=== PATIENT | female | born 1960 | race Caucasian/White ===

== ENCOUNTER 2019-10-20 10:39 | Emergency (ER) | payer OTHER, MEDICAID ==
[~2019-10-20] VITALS: Ht 157.5 cm; Wt 52.0 kg
[~2019-10-20 10:39] MED LIST: ACET1TAB12 PO; ADV50100 INH; ALB0.5UD IH; CLIN-97 PO; IBUP-1984 PO; LEVA15HF4 IH; PRED20TA PO; TIOT18CA7 IH; TRAM50TA2 PO
[2019-10-20] MEDS ORDERED: LIDOcaine 5% patch TP STA (11:36)
[2019-10-20] MEDS ORDERED: ketorolac tromethamine 15mg/ml inj. IM ONE (11:40)
[2019-10-20] MEDS ORDERED: IBUP-1985 PO (12:27)
[2019-10-20] MEDS ORDERED: LIDO700A32 TOP (12:27)
[2019-10-20 12:43] VITALS: BP 134/69
== END 2019-10-20 12:39 | disposition home or self-care (01) ==
LOC: ER 10:40
DX: M25.511 Pain in right shoulder (principal); M54.2 Cervicalgia; R53.1 Weakness; J45.909 Unspecified asthma, uncomplicated; G89.29 Other chronic pain; F17.200 Nicotine dependence, unspecified, uncomplicated; Z98.890 Other specified postprocedural states; Z79.899 Other long term (current) drug therapy; V89.2XXA Person injured in unspecified motor-vehicle accident, traffic, initial encounter; Y93.89 Activity, other specified; Y92.488 Other paved roadways as the place of occurrence of the external cause; Y99.8 Other external cause status
CPT/HCPCS: 73030; 96372; 99283; J1885

== ENCOUNTER 2020-01-21 11:04 | Emergency (ER) | payer MEDICAID ==
[~2020-01-21] VITALS: Ht 157.5 cm; Wt 50.0 kg
[~2020-01-21 11:04] MED LIST changes: +IBUP-1985 PO; +LIDO700A32 TOP
[2020-01-21 11:09] VITALS: BP 98/62
[2020-01-21] MEDS ORDERED: ALBU8HFA PO (11:23)
[2020-01-21] MEDS ORDERED: PENI500T2 PO (11:23)
== END 2020-01-21 11:29 | disposition home or self-care (01) ==
LOC: ER 11:04
DX: K08.89 Other specified disorders of teeth and supporting structures (principal); J45.909 Unspecified asthma, uncomplicated; G89.29 Other chronic pain; M54.9 Dorsalgia, unspecified; Z98.890 Other specified postprocedural states; Z79.899 Other long term (current) drug therapy
CPT/HCPCS: 99283

== ENCOUNTER 2021-10-14 11:43 | Emergency (ER) | payer MEDICAID ==
[~2021-10-14] VITALS: Ht 157.5 cm; Wt 54.5 kg
[2021-10-14] MEDS ORDERED: CefTRIAXone 2gm/D5W 50ml BAG 50 ML IV ONE (11:55)
[2021-10-14] MEDS ORDERED: ipratropium/albuterol 3ml nebule NEB ONE ×2 (11:55→15:00)
[2021-10-14] MEDS ORDERED: normal saline 1000ML IV soln IV ONE (11:55)
[2021-10-14] MEDS ORDERED: azithromycin/NS 500mg/250ml 250 ML IV ONE (11:55)
--- NOTE | 2021-10-14 12:34 | NUR ---
RT IN TO GIVE PT ORDERED SVN NEB. PER RN OTTO, PT IS UNDER SUSPICION FOR COVID D/T UNVACCINATED STATUS AND PT LIVING NEAR COVID POSITIVE PEOPLE. AGREEMENT TO WAIT ON SVN AT THE MOMENT UNTIL TEST COMES BACK NEGATIVE. PT IS NOT SOB. SPO2 96% ON RA. PT HAS MOIST PRODUCTIVE COUGH WITH MINIMAL SECRETIONS. ASKED NGA RODRIGUEZ ABOUT HOLDING THE SVN AND HE STATED THAT IS FINE. RT WILL COME BACK WHEN PTS TEST COMES BACK NEGATIVE
[2021-10-14 12:43] LABS: BASOPHILS % (AUTO) 0.3 % (0-1); EOSINOPHILS # (AUTO) 0.1 X10'3 (0-0.9); EOSINOPHILS % (AUTO) 0.8 % (0-6); HEMATOCRIT 45.4 % (35.0-45.0); HEMOGLOBIN 15.6 g/dl (12.0-16.0); LYMPHOCYTES # (AUTO) 1.9 X10'3 (1.1-4.8); LYMPHOCYTES % (AUTO) 27.4 % (21-51); MEAN CORPUSCULAR HEMOGLOBIN 32.2 PG (27.0-31.0); MEAN CORPUSCULAR HGB CONC 34.3 g/dL (33.0-36.5); MEAN PLATELET VOLUME 6.9 FL (7.4-10.4); MONOCYTES # (AUTO) 0.6 X10'3 (0-0.9); MONOCYTES % (AUTO) 9.1 % (2-12); NEUTROPHILS # (AUTO) 4.2 X10'3 (1.8-7.7); NEUTROPHILS % (AUTO) 62.4 % (42-75); PLATELET COUNT 234 X10'3 (140-440); RED BLOOD COUNT 4.83 X10'6 (4.20-5.60); RED CELL DISTRIBUTION WIDTH 12.4 % (11.5-14.5); WHITE BLOOD COUNT 6.8 X10'3 (4.5-11.0)
[2021-10-14 12:55] LABS: ALANINE AMINOTRANSFERASE 21 U/L (12-78); ALBUMIN 3.3 G/DL (3.4-5.0); ALBUMIN/GLOBULIN RATIO 0.8 (1.1-1.5); ALKALINE PHOSPHATASE 82 IU/L (46-116); ANION GAP 13 (8-16); ASPARTATE AMINO TRANSFERASE 34 U/L (10-37); BLOOD UREA NITROGEN 10 MG/DL (7-18); CALCIUM 8.8 MG/DL (8.5-10.1); CHLORIDE 103 MMOL/L (99-107); CREATININE 0.91 MG/DL (0.40-0.90); GLUCOSE 166 MG/DL (70-104); POTASSIUM 3.4 MMOL/L (3.5-5.1); SODIUM 139 MMOL/L (135-145); TOTAL CARBON DIOXIDE 22.7 MMOL/L (24-32); TOTAL PROTEIN 7.5 G/DL (6.4-8.2); eGFR 63 ML/MIN
[2021-10-14 12:59] LABS: MAGNESIUM 1.8 MG/DL (1.5-2.4)
[2021-10-14 13:00] LABS: BILIRUBIN,TOTAL 0.5 MG/DL (0.1-1.0)
--- NOTE | 2021-10-14 14:59 | NUR ---
Patient refuses straight cath for urine.
[2021-10-14] MEDS ORDERED: LEVA15HF4 INH (15:08)
[2021-10-14] MEDS ORDERED: FLUT1BLS4 PO (15:08)
[2021-10-14] MEDS ORDERED: AMOX-117 PO (15:08)
[2021-10-14] MEDS ORDERED: PRED10TA23 PO (15:08)
--- NOTE | 2021-10-14 16:35 | NUR ---
CALLED [facility] FOR PT TO BE TAKEN BACK HOME, ETA 20MIN
[2021-10-14 16:40] VITALS: BP 112/69
== END 2021-10-14 16:48 | disposition home or self-care (01) ==
LOC: ER 11:43
DX: J44.1 Chronic obstructive pulmonary disease with (acute) exacerbation (principal); Z20.822 Contact with and (suspected) exposure to COVID-19; J45.909 Unspecified asthma, uncomplicated; G89.29 Other chronic pain; M54.50 Low back pain, unspecified
CPT/HCPCS: 36415; 70450; 71045; 80053; 83605; 83735; 84145; 84484; 85025; 87040; 87635; 93005; 94640; 96365; 96367; 99285; C9803; J0456; J0696; J3490; J7030; 94760

== ENCOUNTER 2022-11-13 22:36 | Emergency (ER) | payer MEDICAID ==
[~2022-11-13] VITALS: Ht 157.5 cm; Wt 49.6 kg
[~2022-11-13 22:36] MED LIST changes: +FLUT1BLS4 PO; +LEVA15HF4 INH
[2022-11-13 22:49] VITALS: TEMP 99.2
[2022-11-14] MEDS ORDERED: SULF1TAB49 PO (01:43)
[2022-11-14] MEDS ORDERED: PRED20TA PO (01:43)
[2022-11-14 02:00] VITALS: BP 136/88; PULSE 96; RESP 16; O2SAT 97
== END 2022-11-14 02:04 | disposition home or self-care (01) ==
LOC: ER 22:37
DX: L23.7 Allergic contact dermatitis due to plants, except food (principal); G89.29 Other chronic pain; M54.9 Dorsalgia, unspecified; J45.909 Unspecified asthma, uncomplicated; Z79.899 Other long term (current) drug therapy
CPT/HCPCS: 99283